=== PATIENT | female | born 1970 | race Caucasian/White ===

== ENCOUNTER → 2023-08-31 09:04 | Outpatient (REF) | payer BC, SELFPAY | LOC: WOUND 09:04 | PROVIDERS: ATTENDING PHYSICIAN Surgery; REFERRING PHYSICIAN Internal Medicine | DX: S81.831A Puncture wound without foreign body, right lower leg, initial encounter (principal); L97.812 Non-pressure chronic ulcer of other part of right lower leg with fat layer exposed; G80.9 Cerebral palsy, unspecified; X58.XXXA Exposure to other specified factors, initial encounter | CPT/HCPCS: 11042 ==

== ENCOUNTER → 2023-09-14 09:02 | Outpatient (REF) | payer BC, SELFPAY | LOC: WOUND 09:02 | PROVIDERS: ATTENDING PHYSICIAN Surgery; REFERRING PHYSICIAN Internal Medicine | DX: S81.831A Puncture wound without foreign body, right lower leg, initial encounter (principal); L97.812 Non-pressure chronic ulcer of other part of right lower leg with fat layer exposed; G80.9 Cerebral palsy, unspecified; X58.XXXA Exposure to other specified factors, initial encounter | CPT/HCPCS: 11042 ==

== ENCOUNTER 2024-09-17 18:49 | Emergency (ER) | payer BC, SELFPAY ==
[2024-09-17 18:53] VITALS: BP 115/91
[2024-09-17 19:12] LABS: % Basophils 0.5 % (0-2); % Eosinophils 12.4 % (0-6); % Immature Granulocytes 0.2 % (0-0.5); % Lymphocytes 24.3 % (20.5-51.1); % Monocytes 7.2 % (1.7-9.3); % Neutrophils 55.4 % (42.2-75.2); Absolute Basophils 0.1 10^3/uL (0-0.2); Absolute Eosinophils 1.6 10^3/uL (0-0.7); Absolute Lymphocytes 3.1 10^3/uL (1.2-3.4); Absolute Monocytes 0.9 10^3/uL (0.1-0.6); Absolute Neutrophils 7.2 10^3/uL (1.4-6.5); Hematocrit 37.5 % (37.0-47.0); Hemoglobin 13.3 g/dL (12.0-16.0); Mean Corp Hgb Conc. 35.5 g/dL (33.0-37.0); Mean Corpuscular Hgb 30.7 pg (27.0-31.0); Mean Corpuscular Volume 86.6 fL (81.0-99.0); Mean Platelet Volume 11.1 fL (7.4-10.4); Nucleated Red Blood Cells % 0 %; Platelet Count 261 10^3/uL (130-400); Red Blood Cell Count 4.33 10^6/uL (4.20-5.40); Red Cell Dist. Width 11.6 % (11.5-14.5); White Blood Cell Count 12.9 10^3/uL (4.8-10.8)
[2024-09-17 19:31] LABS: ALT (SGPT) 17 U/L (0-35); AST (SGOT) 21 U/L (14-36); Albumin 4.7 g/dl (3.5-5.0); Alkaline Phosphatase 113 U/L (38-126); Blood Urea Nitrogen 18 mg/dl (7-17); Calcium 9.6 mg/dl (8.4-10.2); Carbon Dioxide 23 mmol/L (22-30); Chloride 101 mmol/L (98-107); Glucose 105 mg/dl (70-99); Potassium 4.3 mmol/L (3.5-5.1); Sodium 137 mmol/L (135-145); Total Bilirubin 0.3 mg/dl (0.2-1.3); Total Protein 7.7 g/dl (6.3-8.2); eGFR > 60.00
--- NOTE | 2024-09-17 20:33 | ED.GENMED ---
History of Present Illness
<Junaid Johnson MD, Resident - Last Filed: 09/17/24 23:16>
General
Chief Complaint: Skin Problem
Source: patient and spouse
Exam Limitations: none
Time Seen by Provider: 09/17/24 20:18
History of Present Illness
History of Present Illness:
�HPI:
Patient fell down concrete steps approximately 2 weeks ago, sustaining a lower extremity (LE) injury. The wound became subjectively infected after the incident. Patient visited urgent care twice for this issue.
The first prescription (Bactrim) caused an allergic reaction, leading to a switch to Bacitracin ointment with dressing changes twice daily (BID).
Despite treatment, there is superficial rash spreading and increased pain surrounding the LE Skin Lesion over the anterior avelar aspect on the Left side.
Off-Note - Patient complains of having chronic imbalance and LE Injuries with associated gait disturbances due to her previously established DIAG of cerebral palsy. Also a contralateral LE wound injury which was noted to be healed at this time.
�ROS: Was negative for chills, fever.
Positive for worsening redness and swelling with prolonged standing
�PMHx: Cerebral Palsy (CP), seizures
�ALLERGIES:
- Bactrim: itching, bumps
- Penicillin: reported by mother, reaction unknown
�MEDICATIONS:
- Trileptal for seizures
- PRN Advil for pain
Past History
<Junaid Johnson MD, Resident - Last Filed: 09/17/24 23:16>
Past History
ED Past Medical History: Seizures (Cerebral Palsy ) and Other (Recurrent bilateral LE Traumatic injuries with associated skin wounds & subjective infections)
Social History
Living: with family
Family History
Family History: Unable to obtain (Non relevant nor pertinent to current CC and/or current ED visit)
Review of Systems
<Junaid Johnson MD, Resident - Last Filed: 09/17/24 23:16>
Review of Systems
Allergies reviewed?: Yes
Unable to obtain full review of systems at this time due to: other (Mild Hearing Impairment )
Other source history: family (Spouse )
All Other Systems: ROS reviewed and negative except as documented in HPI and ROS
Constitutional: Reports other (Chronic Gait Disturbances / Imbalance and Associated LE Injuries/Chronic LE Wounds billaterally)
EENT: Reports no symptoms
Respiratory: Reports no symptoms
Cardiac: Reports no symptoms
ABD/GI: Reports no symptoms
: Reports no symptoms
Musculoskeletal: Reports edema (Right - LE Surrounding Injury/Wound over the lower anterior avelar aspect )
Skin: Reports other (Right - LEFT- LE Injury / Wound over the lower anterior avelar aspect - Well circumscribe Rounded erythematous lesion of approx. 4cm in radius with well demarcated borders and prominent central erythema and surrounding petechia
like rash extending pass over lesion borders peripherally)
Neurological: Reports other (Usual Chronic Imbalance sensation and associted gait disturbance in the setting of established cerebral palsy DIAG)
Hematologic/Lymphatic: Reports other (Petechia like surrounding erythema )
Psychiatric: Reports no symptoms
Phy Exam
<Junaid Johnson MD, Resident - Last Filed: 09/17/24 23:16>
General Physical Exam
General Presentation: well appearing and no apparent distress
General age: appears stated age
General Skin: warm, dry and flushed
General Habitus: obese
General Mental: alert and usual mental status
General Hydration: appears well hydrated
General Chronic Disability: other (As previously stated )
Musculoskeletal Exam
Musculoskeletal Exam: full ROM, edema and neuro vasc intact
Skin Exam
Skin Exam: warm/dry, erythema, laceration, mottled, petechia, redness, tenderness, warmth and other (Right - LEFT - LE Injury / Wound over the lower anterior avelar aspect - Well circumscribe Rounded erythematous lesion of approx. 4cm in radius with
well demarcated borders and prominent central erythema and surrounding petechia like rash extending pass over lesion borders peripherally)
Psychiatric Exam
Psychiatric Exam: normal mood/affect
Course
<Junaid Johnson MD, Resident - Last Filed: 09/17/24 23:16>
Orders/Labs/Results
Orders:
Orders
09/17/24 19:03
CBC/With Diff [Complete Blood Count/With Diff] Urgent
CMP [Comprehensive Metabolic Panel] Urgent
Abnormal Lab Results
09/17/24
19:03
WBC 12.9 H 10^3/uL
(4.8-10.8)
MPV 11.1 H fL
(7.4-10.4)
Absolute Neuts (auto) 7.2 H 10^3/uL
(1.4-6.5)
Absolute Monos (auto) 0.9 H 10^3/uL
(0.1-0.6)
Absolute Eos (auto) 1.6 H 10^3/uL
(0-0.7)
Eosinophils % 12.4 H %
(0-6)
BUN 18 H mg/dl
(7-17)
Glucose 105 H mg/dl
(70-99)
09/17/24 19:03
09/17/24 19:03
Vital Signs
Initial and Last Documented VS:
Initial Vital Signs
Temp Pulse Resp BP Pulse Ox
97.6 F 93 15 115/91 100
09/17/24 18:53 09/17/24 18:53 09/17/24 18:53 09/17/24 18:53 09/17/24 18:53
Last Documented Vital Signs
Temp Pulse Resp BP Pulse Ox
98.0 F 86 18 143/83 99
09/17/24 22:37 09/17/24 22:37 09/17/24 22:37 09/17/24 22:37 09/17/24 22:37
<Ren Sultana, DO - Last Filed: 09/18/24 02:12>
Orders/Labs/Results
Orders:
Orders
09/17/24 19:03
CBC/With Diff [Complete Blood Count/With Diff] Urgent
CMP [Comprehensive Metabolic Panel] Urgent
Abnormal Lab Results
09/17/24
19:03
WBC 12.9 H 10^3/uL
(4.8-10.8)
MPV 11.1 H fL
(7.4-10.4)
Absolute Neuts (auto) 7.2 H 10^3/uL
(1.4-6.5)
Absolute Monos (auto) 0.9 H 10^3/uL
(0.1-0.6)
Absolute Eos (auto) 1.6 H 10^3/uL
(0-0.7)
Eosinophils % 12.4 H %
(0-6)
BUN 18 H mg/dl
(7-17)
Glucose 105 H mg/dl
(70-99)
09/17/24 19:03
09/17/24 19:03
Vital Signs
Initial and Last Documented VS:
Initial Vital Signs
Temp Pulse Resp BP Pulse Ox
97.6 F 93 15 115/91 100
09/17/24 18:53 09/17/24 18:53 09/17/24 18:53 09/17/24 18:53 09/17/24 18:53
Last Documented Vital Signs
Temp Pulse Resp BP Pulse Ox
98.0 F 86 18 143/83 99
09/17/24 22:37 09/17/24 22:37 09/17/24 22:37 09/17/24 22:37 09/17/24 22:37
<Jkristie Johnson MD, Resident - Last Filed: 09/17/24 23:16>
*Critical Care Note
Total Time (30-74mins, 75-104mins- exclusive of procedures): ~35 Minutes
ED Attending Note
<Junaid Johnson MD, Resident - Last Filed: 09/17/24 23:16>
-
Portions of this chart may have been created with voice recognition software.� Occasional wrong word or��sound alike� substitutions may have occurred due to the inherent limitations of voice recognition software.
<Ren Sultana DO - Last Filed: 09/18/24 02:12>
ED Attending Note
Patient seen and examined by attending physician: Yes
I performed a history and physical exam of patient and discussed management with resident, I reviewed resident's note and agree with documented findings and plan of care.: Yes
ED Attending Note:
Patient is a 53-year-old female presents to the emergency department with redness and swelling of her left anterior lower leg. Patient denies fever or chills. Patient denies any history of diabetes. Patient denies any recent trauma. Patient had
some swelling there and redness and was placed on antibiotics. Patient was placed on Bactrim and had a reaction to the Bactrim. Patient also was told to apply Neosporin and put a dressing over it. Patient knows that it was red and not
particularly pruritic. Patient denies fever or chills. Patient denies any constitutional symptoms. Patient has a spot on the other right lower leg that required wound care in the past. On physical exam the patient is not any distress. There is
a papular erythematous rash to the anterior left lower leg. Neurovascular and tendons intact. It appears to be more of contact dermatitis than anything. However given the erythema we will start the patient on doxycycline and use a steroid cream
to the area. Patient will be discharged to follow-up with her doctor. At this time I do not believe she needs wound care.
Discharge Plan
Departure
Patient Disposition: Home (Routine Discharge)
Date of Disposition: 09/17/24
Time of Disposition: 22:56
Patient with high blood pressure during this ER visit?: Yes
Condition: Good
Discharge Problem:
Skin lesion of left lower extremity
Instructions: Skin Rash (DC), Wound Care (DC), Cellulitis (Skin Infection), Adult (DC)
Prescriptions:
New
doxycycline hyclate 100 mg capsule
100 mg PO BID Qty: 14 0RF
triamcinolone acetonide 0.1 % cream
1 applic topical DAILY Qty: 15 0RF
No Action
clindamycin HCl 150 mg capsule
450 mg PO TID 7 Days Qty: 63 0RF
Referrals:
UNKNOWN - PT DOES,NOT KNOW [Family Provider] -
Interventions
Interventions:
*Risk Screen - Suicide Last Done: 09/17/24 18:53
*General Assessment Last Done: 09/17/24 18:53
*Neglect/Abuse Screening Last Done: 09/17/24 18:53
*ED COVID-19 Vaccine History Last Done: 09/17/24 18:53
*Nursing Disposition Last Done: 09/17/24 23:15
ED-Skin Assessment Last Done: 09/17/24 22:37
Discharge Date and Time
Discharge Date/Time: 09/17/24 23:15
Print Language: SPANISH
[2024-09-17 22:37] VITALS: BP 143/83
== END 2024-09-17 23:15 | disposition home or self-care (01) ==
LOC: EMR 18:49
PROVIDERS: Emergency Medicine; EMERGENCY PHYSICIAN Emergency Medicine
DX: L98.9 Disorder of the skin and subcutaneous tissue, unspecified (principal); G80.9 Cerebral palsy, unspecified; Z88.0 Allergy status to penicillin; Z88.1 Allergy status to other antibiotic agents
CPT/HCPCS: 99283; 80053; 85025